=== PATIENT | female | born 1980 | race Caucasian/White ===

== ENCOUNTER 2021-05-16 15:59 | Emergency (ER) | payer OTHER, SELFPAY ==
[2021-05-16 16:12] VITALS: BP 118/77; PULSE 123; RESP 18; TEMP 38.1; O2SAT 97
--- NOTE | 2021-05-16 16:30 | ED.URI ---
HPI - URI/Sore Throat General Chief Complaint: Upper Respiratory Infection Stated Complaint: Nausea,Headache Time Seen by Provider: 05/16/21 16:22 Source: patient and RN notes reviewed Mode of arrival: ambulatory Limitations: no limitations History of Present Illness HPI Narrative: Patient presents today complaining of body aches, chills, headache, nausea, vomiting, and dry heaves with low-grade fever since this morning. Reports symptoms have been worsening throughout the day today. She has been able to keep down fluid and some crackers. She currently rates her headache 5/10 and has been taking Tylenol without relief. Denies any known COVID-19 exposure. MD elicited complaint: fever and other (Nausea, vomiting) Related Data Home Medications Medication Instructions Recorded Confirmed sertraline 50 mg DAILY 05/16/21 05/16/21 Allergies Allergy/AdvReac Type Severity Reaction Status Date / Time No Known Allergies Allergy Verified 05/16/21 16:22 Review of Systems Review of Systems: CONSTITUTIONAL: Denies sweats.+ Chills, body aches, fever EYES: Denies visual changes, redness, or discharge. ENT: Denies rhinorrhea, sore throat, or otalgia.+ Congestion CARDIOVASCULAR: Denies chest pain, palpitations, or edema. RESPIRATORY: Denies dyspnea.+ Cough GASTROINTESTINAL: Denies abdominal pain, diarrhea.+ Nausea and vomiting, dry heaves GENITOURINARY: Denies dysuria or hematuria. SKIN: Denies rash, itching, or wounds. MUSCULOSKELETAL: Denies back pain, joint pain, or myalgia. NEUROLOGIC: Denies headache, numbness, tingling, or weakness. PSYCH: Denies depression or anxiety. PMFSH Comments At time of signature, I have reviewed and agree with nursing past medical, surgical, social and family history unless otherwise noted. Please see nursing chart for further information. There is no relevant family history pertinent to the presenting complaint Exam Narrative: GENERAL: Mildly ill-appearing, well-nourished, and in no acute distress. HEAD: Normocephalic, atraumatic. EYES: EOMI. No redness or drainage. Conjunctivae normal. ENT: Mucous membranes pink and moist. Nares clear. No rhinorrhea. TMs normal bilaterally. Throat normal. Uvula midline. NECK: Normal AROM. Supple. No lymphadenopathy. CHEST: No respiratory distress. Clear to auscultation. HEART: Regular rate and rhythm. No murmur appreciated. Normal peripheral pulses. EXTREMITIES: Normal range of motion. No edema. SKIN: Warm, dry, no rash. Capillary refill normal. Normal skin turgor. NEURO: No focal deficits. Alert and oriented x3. Gait steady. PSYCH: Normal affect. No signs of depression or anxiety. Course Course Level of Care: Express Care Visit Vital Signs Vital signs: Vital Signs Temperature 100.5 F H 05/16/21 16:12 Pulse Rate 123 H 05/16/21 16:12 Respiratory Rate 18 05/16/21 16:12 Blood Pressure 118/77 05/16/21 16:12 Pulse Oximetry 97 05/16/21 16:12 Temperature 100.5 F H 05/16/21 16:12 Pulse Rate 123 H 05/16/21 16:12 Respiratory Rate 18 05/16/21 16:12 Blood Pressure 118/77 05/16/21 16:12 Pulse Oximetry 97 05/16/21 16:12 Reviewed MDM - URI/Sore Throat Differential Diagnosis Differential diagnosis: Likely upper respiratory infection, viral infection, influenza and other (COVID-19) Lab Data Attestation: I reviewed the patient's lab results. Labs: Lab Results 05/16/21 Range/Units 16:35 POC SARS CoV-2 Ag Positive (Negative) Influenza A Screen Negative Reference Range: Negative Influenza B Screen Negative Reference Range: Negative Critical Care Time Critical Care Time Critical Care Time: No Discharge Plan Discharge Clinical Impression: COVID-19 Patient Disposition: Home, Self-Care Condition: Stable Instructions: COVID-19 (Coronavirus Disease 2019) (ED) Additiona
== END 2021-05-16 17:14 | disposition home or self-care (01) ==
PROVIDERS: Emergency Provider Nurse Practitioner
DX: U07.1 COVID-19 (principal); F32.A Depression, unspecified
CPT/HCPCS: 87426; 87804; 99203; C9803; G0463